=== PATIENT | female | born 1935 | race Caucasian/White ===

== ENCOUNTER → 2016-08-20 | Day surgery (SDC) | payer MEDICARE, BC ==
[~2016-08-20] MED LIST: Acetaminophen TAB* 325 MG PO PRN; Buffered Lidocaine 1% SYR 3ML* 3 ML/SYR SYRINGE INTRADERM ONE; Buffered Lidocaine 1% SYR 3ML* 3 ML/SYR SYRINGE ONE; Cyclopentolate 1% OPTH.SOL* 2 ML BTL ONE; Flurbiprofen 0.03% OPTH.SOL* 2.5 ML BTL ONE; Lidocaine 1% MPF* 2 ML VIAL ONE; Lidocaine 2% EPI 1:200000 MPF* 20 ML VIAL ONE; Midazolam* 1 MG/ML 2 ML VIAL (2 MG) ONE; Neomycin/Polymy/Dex OPTH.SUSP* MAXITROL 0.1% 5 ML ONE; Phenylephrine 2.5% OPTH.SOL* 2 ML BTL ONE; Povidone Iodine 5% OPTH* 30 ML BTL ONE; Proparacaine 0.5% OPHTH.SOL* 15 ML BTL ONE; acetaZOLAMIDE TAB* 250 MG ONE
--- NOTE | 2016-08-20 10:55 | OP ---
DATE OF OPERATION: 08/20/2016. DATE OF : 1935. SURGEON: Luis Manuel Box M.D. PREOPERATIVE DIAGNOSIS: Cataract right eye. POSTOPERATIVE DIAGNOSIS: Cataract right eye. OPERATIVE PROCEDURE: Phacoemulsification right eye with IOL. PROCEDURE: The patient was brought to the operating room after being given 1/2% Alcaine with epinep hrine drops in the preoperative area. The eye was prepped and draped in the usual sterile fashion. Sterile drape and eyelid speculum were placed. Again, topical 1/2% Alcaine with epinephrine was gi kendrick. A paracentesis incision was made at the 9 o'clock position with the No.75 blade. Clear cornea incision 2.2 x 2.2-mm was created at the 12 o'clock position starting at the anterior limbus using the 2.2-mm keratome. The anterior chamber was irrigated with 0.4 mL of 1% non-preservative intracam eral lidocaine and filled with DisCoVisc. A capsulorrhexis was completed using the cystotome and th e Utrata forceps. Hydrodissection was performed with balanced salt solution. The lens nucleus was r emoved with the Phacoemulsification handpiece without incident. Cortex was removed with the irrigat ion-aspiration handpiece. The capsular bag was re-inflated using DisCoVisc and an SN60WF 22.5 impla nt was inserted with the shooter. The irrigation-aspiration handpiece was used to remove all residu al DisCoVisc. The eye was refilled with balanced salt solution and the wound checked and found to b e watertight. Topical Maxitrol drops were given. [id number]/[facility] #: [id number]
[2016-08-20 11:39] VITALS: BP 115/76
== END | disposition home or self-care (01) ==
LOC: OREAST 07:41
PROVIDERS: ATTEND Specialist
DX: H25.811 Combined forms of age-related cataract, right eye (principal); H18.51 Endothelial corneal dystrophy; H35.373 Puckering of macula, bilateral
CPT/HCPCS: A9270-GY; J2250; V2632

== ENCOUNTER → 2016-08-27 | Day surgery (SDC) | payer MEDICARE, BC ==
--- NOTE | 2016-08-27 11:09 | OP ---
DATE OF OPERATION: 08/27/2016. DATE OF : 1935. SURGEON: Luis Manuel Box M.D. PREOPERATIVE DIAGNOSIS: Cataract left eye. POSTOPERATIVE DIAGNOSIS: Cataract left eye. OPERATIVE PROCEDURE: Phacoemulsification left eye with IOL. PROCEDURE: The patient was brought to the operating room after being given 1/2% Alcaine with epinep hrine drops in the preoperative area. The eye was prepped and draped in the usual sterile fashion. Sterile drape and eyelid speculum were placed. Again, topical 1/2% Alcaine with epinephrine was gi kendrick. A paracentesis incision was made at the 3 o'clock position with the No.75 blade. Clear cornea incision 2.2 x 2.2-mm was created at the 6 o'clock position starting at the anterior limbus using t he 2.2-mm keratome. The anterior chamber was irrigated with 0.4 mL of 1% non-preservative intracame ral lidocaine and filled with DisCoVisc. A capsulorrhexis was completed using the cystotome and the Utrata forceps. Hydrodissection was performed with balanced salt solution. The lens nucleus was re moved with the Phacoemulsification handpiece without incident. Cortex was removed with the irrigati on-aspiration handpiece. The capsular bag was re-inflated using DisCoVisc and an SN60WF 22.5 implan t was inserted with the shooter. The irrigation-aspiration handpiece was used to remove all residua l DisCoVisc. The eye was refilled with balanced salt solution and the wound checked and found to be watertight. Topical Maxitrol drops were given. [id number]/[facility] #: [id number]
[2016-08-27 11:12] VITALS: BP 124/73
== END | disposition home or self-care (01) ==
LOC: OREAST 07:51
PROVIDERS: ATTEND Specialist
DX: H25.812 Combined forms of age-related cataract, left eye (principal); H18.51 Endothelial corneal dystrophy; H35.373 Puckering of macula, bilateral; G30.1 Alzheimer's disease with late onset; E78.2 Mixed hyperlipidemia
CPT/HCPCS: A9270-GY; J2250; V2632

== ENCOUNTER 2017-08-20 18:49 | Observation (INO) | payer MEDICARE, OTHER ==
[2017-08-20 22:01] LABS: ABS Basophils 0 10^3/ul (0-0.2); ABS Eosinophils 0.1 10^3/ul (0-0.6); ABS Lymphocytes 1.7 10^3/ul (1.0-4.8); ABS Monocytes 1.2 10^3/ul (0-0.8); ABS Neutrophils 6.9 10^3/ul (1.5-7.7); ABS Nucleated RBC 0 10^3/ul; Hematocrit 38 % (35-47); Hemoglobin 12.8 g/dl (12.0-16.0); Lymphocyte % 17.3 % (25-47); Mean Corpuscular HGB Conc 34 g/dl (31-36); Mean Corpuscular Hemoglobin 31 pg (27-31); Mean Corpuscular Volume 92 fL (80-97); Mean Platelet Volume 8 um3 (7.4-10.4); Nucleated Red Blood Cells % 0; Platelet Count 311 10^3/ul (150-450); Red Blood Count 4.16 10^6/ul (4.0-5.4); Red Cell Distribution Width 14 % (10.5-15)
[2017-08-20 22:11] LABS: EGFR Non-African American 58.4 (>60)
--- NOTE | 2017-08-20 22:11 | RAD ---
Indication: Right ankle injury. 3 views of the right ankle demonstrate soft tissue swelling. Ankle mortise is intact. No other bone or joint abnormality is noted. IMPRESSION: Soft tissue swelling without fracture.
--- NOTE | 2017-08-20 22:12 | RAD ---
Indication: Right foot pain. 3 views of the right foot are reviewed. Osteopenia is noted. No fracture is identified. IMPRESSION: Osteopenia without evidence of fracture.
--- NOTE | 2017-08-20 22:46 | ED ---
Jeff Gardner Nikita, scribelmira for Abigail Meng MD on 08/20/17 at 2104 . Lower Extremity - HPI Summary HPI Summary: This patient is an 81 year old F presenting to [facility] accompanied by her children with a chief complaint of right-sided LE pain since 1700 today. The patient rates the pain 8/10 in severity. Symptoms aggravated by ambulating. Symptoms alleviated by nothing. Patient reports inability to ambulate due to pain and swelling of the right foot and of the right thigh. - History of Current Complaint Chief Complaint: EDExtremityLower Stated Complaint: RT LEG/FOOT PAIN Time Seen by Provider: 08/20/17 20:42 Hx Obtained From: Family/Research Professional - Daughters Hx From Patient Unobtainable Due To: Dementia Onset/Duration: Still Present Severity Currently: Moderate Pain Intensity: 8 Pain Scale Used: 0-10 Numeric Timing: Lasting Hours Location: Is Discrete @ - right foot, right thigh Associated Signs And Symptoms: Positive: Swelling - of the right foot and right thigh Aggravating Factor(s): Ambulation Alleviating Factor(s): Nothing - Allergies/Home Medications Allergies/Adverse Reactions: Allergies Allergy/AdvReac Type Severity Reaction Status Date / Time Statins Allergy Unknown Unknown Verified 08/20/17 20:47 Reaction Details PMH/Surg Hx/FS Hx/Imm Hx GI History: Reports: Hx Gastroesophageal Reflux Disease - MILD UNDIAGNOSED, Hx Hiatal Hernia - MILD History: Reports: Other Problems/Disorders - HAD UTI- RESOLVED Musculoskeletal History: Reports: Hx Arthritis - HIPS, OSTEOARTHRITIS Sensory History: Reports: Hx Cataracts - pending surgery, Hx Contacts or Glasses , Hx Glaucoma Denies: Hx Hearing Aid Opthamlomology History: Reports: Hx Cataracts - pending surgery, Hx Contacts or Glasses, Hx Glaucoma Neurological History: Reports: Hx Dementia, Other Neuro Impairments/Disorders - ALZHEIMERS Psychiatric History: Reports: Hx Depression - Surgical History Surgery Procedure, Year, and Place: hysterectomy Hx Anesthesia Reactions: No - Immunization History Date of Tetanus Vaccine: unk Date of Influenza Vaccine: unk Infectious Disease History: No Infectious Disease History: Denies: Traveled Outside the [place] in Last 30 Days - Family History Known Family History: Positive: None Family History: no cardiovascular issues in family lineage - Social History Alcohol Use: None Substance Use Type: Reports: None Smoking Status (MU): Never Smoked Tobacco Have You Smoked in the Last Year: No Review of Systems Negative: Fever Positive: Other - Patient reports inability to ambulate due to pain and swelling of the right foot and of the thigh. All Other Systems Reviewed And Are Negative: No Physical Exam - Summary Physical Exam Summary: VITAL SIGNS: Reviewed. GENERAL: Patient is a morbidly obese (female) who is lying comfortable in the stretcher. Patient is not in any acute respiratory distress. HEAD AND FACE: No signs of trauma. No ecchymosis, hematomas or skull depressions. No sinus tenderness. EYES: PERRLA, EOMI x 2, No injected conjunctiva, no nystagmus. EARS: Hearing grossly intact. Ear canals and tympanic membranes are within normal limits. MOUTH: Oropharynx within normal limits. NECK: Supple, trachea is midline, no adenopathy, no JVD, no carotid bruit, no c- spine tenderness, neck with full ROM. CHEST: Symmetric, no tenderness at palpation LUNGS: Clear to auscultation bilaterally. No wheezing or crackles. CVS: Regular rate and rhythm, S1 and S2 present, no murmurs or gallops appreciated. ABDOMEN: Soft, non-tender. No signs of distention. No rebound no guarding, and no masses palpated. Bowel sounds are normal. EXTREMITIES: FROM in all major joints, no cyanosis or clubbing. Tenderness of the right foot and ankle. No redness or warmness. Bilateral trace LE edema.Pain with movement of right ankle. NEURO: Alert and oriented only to her name. Motor exam is grossly non-focal. SKIN: Dry and warm Triage Information Reviewed: Yes Vital Signs On Initial Exam: Initial Vitals Temp Pulse Resp BP Pulse Ox 96.6 F 110 18 111/65 98 08/20/17 18:56 08/20/17 18:56 08/20/17 18:56 08/20/17 18:56 08/20/17 18:56 Vital Signs Reviewed: Yes Completion Of Physical Exam Limited Due To: Level 5 - History was obtained by daughters. - [place] Coma Scale Coma Scale Total: 14 Diagnostics - Vital Signs Vital Signs Temp Pulse Resp BP Pulse Ox 08/20/17 18:56 96.6 F 110 18 111/65 98 - Laboratory Lab Results: Lab Results 08/20/17 08/20/17 08/20/17 Range/Units 20:50 20:50 20:50 WBC 10.0 (3.5-10.8) 10^3/ul RBC 4.16 (4.0-5.4) 10^6/ul Hgb 12.8 (12.0-16.0) g/dl Hct 38 (35-47) % MCV 92 (80-97) fL MCH 31 (27-31) pg MCHC 34 (31-36) g/dl RDW 14 (10.5-15) % Plt Count 311 (150-450) 10^3/ul MPV 8 (7.4-10.4) um3 Neut % (Auto) 69.2 (38-83) % Lymph % (Auto) 17.3 L (25-47) % [place] % (Auto) 12.2 H (1-9) % Eos % (Auto) 1.0 (0-6) % Baso % (Auto) 0.3 (0-2) % Absolute Neuts (auto) 6.9 (1.5-7.7) 10^3/ul Absolute Lymphs (auto) 1.7 (1.0-4.8) 10^3/ul Absolute Monos (auto) 1.2 H (0-0.8) 10^3/ul Absolute Eos (auto) 0.1 (0-0.6) 10^3/ul Absolute Basos (auto) 0 (0-0.2) 10^3/ul Absolute Nucleated RBC 0 10^3/ul Nucleated RBC % 0 Sodium 136 (133-145) mmol/L Potassium 4.2 (3.5-5.0) mmol/L Chloride 99 L (101-111) mmol/L Carbon Dioxide 33 H (22-32) mmol/L Anion Gap 4 (2-11) mmol/L BUN 24 (6-24) mg/dL Creatinine 0.92 (0.51-0.95) mg/dL Est GFR ( Amer) 75.2 (>60) Est GFR (Non-Af Amer) 58.4 (>60) BUN/Creatinine Ratio 26.1 H (8-20) Glucose 141 H (70-100) mg/dL Lactic Acid 1.3 (0.5-2.0) mmol/L Calcium 9.7 (8.6-10.3) mg/dL Magnesium 2.0 (1.9-2.7) mg/dL Total Bilirubin 0.30 (0.2-1.0) mg/dL AST 24 (13-39) U/L ALT 19 (7-52) U/L Alkaline Phosphatase 96 (34-104) U/L Total Protein 7.4 (6.4-8.9) g/dL Albumin 3.7 (3.2-5.2) g/dL Globulin 3.7 (2-4) g/dL Albumin/Globulin Ratio 1.0 (1-3) Result Diagrams: 08/20/17 20:50 08/20/17 20:50 Lab Statement: Any lab studies that have been ordered have been reviewed, and results considered in the medical decision making process. - Radiology Foot XR Radiology Interpretation Completed By: Radiologist - Osteopenia without evidence of fracture. ED physician has reviewed this radiology report. Ankle XR Radiology Interpretation Completed By: Radiologist - Soft tissue swelling without fracture. ED physician has reviewed this radiology report. Lower Extremity Course/Dx - Course Assessment/Plan: This patient is an 81 year old F presenting [facility] accompanied by her daughters. They stated that Pt suddenly was not able to bear weight on the RLE because of pain. Pt has advaced dementia and not able to give me much history. On exam she has tenderness over the right foot and ankle without other inflammatory signs. X rays are negative for FX. Pt will be admitted for further eval. - Diagnoses Differential Diagnosis/HQI/PQRI: Positive: Other - Difficulty ambulating, right ankle pain, right foot pain. Provider Diagnoses: difficulty ambulating, Right ankle pain, Right foot pain - Physician Notifications Discussed Care Of Patient With: Scottie Hagen Time Discussed With Above Provider: 22:18 Instructed by Provider To: Other - Consulted Dr. Hagen who accepts patient for admission. Discharge - Discharge Plan Condition: Stable Disposition: ADMITTED TO [facility] Referrals: Malorie Faulkner MD [Primary Care Provider] - The documentation as recorded by the Jeff kat Nikita accurately reflects the service I personally performed and the decisions made by me, Abigail Meng MD.
--- NOTE | 2017-08-20 23:37 | HP ---
H&P (Free Text) History and Physical: PCP: Kayleigh Villalpando MD Date/Time: 08/20/2017 2330 CC: intractable R foot pain HPI: Mrs Weston is an 81YO female resident of the [facility] HX Alzheimer's who is unable to contribute to this history given by her daughters who are present. She was up ambulating without difficulty last night per [place] staff. However, when her daughter visited around 1700 she was unable to weight bear on the R foot 2nd pain. She was assisted to the dining area, but required a wheelchair to return to her room. As such, her daughter brought her to the ED for evaluation. There has been no known fall or other injury. The daughters report increased BLE edema since moving to [place] in May 2017, but she is not on a sodium restricted diet. There has been no report of chest pain or SOB. PMedHx Alzheimer's, moderately advanced Ambulatory Orders Ascorbic Acid TAB* [Vitamin C TAB*] 500 mg PO BID 08/02/16 Multiple Vitamins W/ Minerals [Multivitamin Women] 1 tab PO DAILY 08/02/16 Bio-Active Cranberry 500mg 500 mg PO DAILY 08/18/16 Cholecalciferol [Vitamin D3 Ultra Strength] 5,000 unit PO DAILY 08/18/16 Donepezil TAB* [Aricept TAB*] 10 mg PO DAILY 08/18/16 Calcium Carbonate (Antacid) [Tums E-X 750] 750 mg PO Q8H PRN 08/20/17 Magnesium 500 mg PO BID 08/20/17 Melatonin 9 mg PO BEDTIME 08/20/17 Polyethylene Glycol-Propylene [Systane Ultra 0.4-0.3 %] 1 paula OPHTHALMIC BID Triamcinolone 0.1% CREAM (NF) [Kenalog 0.1% Cream (NF)] 1 applic TOPICAL BID guaiFENesin ER TAB [Mucinex*] 600 mg PO Q12H PRN 08/20/17 Allergies Statins Allergy (Unknown, Verified 08/20/17 20:47) Unknown Reaction Details according to the daughter PSurgHx tonsillectomy hysterectomy SocHx: no tobacco, alcohol, or recreational drug HX; resides at [facility]; DNR/I code status FamHx: reviewed & non-contributory to current presentation ROS: as above, otherwise reviewed and all were negative vitals: Vital Signs Temp 36.8 C 08/21/17 02:05 Pulse 72 08/21/17 02:05 Resp 16 08/21/17 03:12 BP 154/78 08/21/17 02:05 Pulse Ox 96 08/21/17 02:05 Intake & Output 08/20/17 08/20/17 08/21/17 11:59 23:59 11:59 Weight 92.986 kg 90.083 kg Constitutional: NAD, normally developed, obese elderly white female HEENM: atraumatic; sclera/conjunctiva: anicteric/clear; hearing: clinically intact; oropharynx: clear, mucosa moist Neck: soft tissue: non-tender; thyroid: normal Pulmonary: clear to auscultation bilaterally, good aeration, no accessory muscle use CV: RR/RR, normal S1S2, no carotid bruit, no jugular venous distention, 2+ B DP/ PT, no pitting edema Abdominal: soft, non-distended, non-tender, no rebound/guarding/rigidity, normoactive bowel sounds, no hepatosplenomegaly or masses, no costovertebral angle tenderness Musculoskeletal: general: negative calf tenderness, negative Everardo's, no palpable cords, tenderness over B greater trochanters; B hips: full painless passive ROM; B knees: full painless passive ROM; gait: currently non-ambulatory Integumental: normal appearance and texture of BLE Psychiatric orientation: AA&O to person only affect: anxious mood: cooperative eye contact: poor content: for me only answers, "I don't know." when asked how she feels or if she hurts memory: markedly impaired responses: timely insight: poor to absent Testing: Lab Results 08/20/17 08/20/17 08/20/17 Range/Units 20:50 20:50 20:50 WBC 10.0 (3.5-10.8) 10^3/ul RBC 4.16 (4.0-5.4) 10^6/ul Hgb 12.8 (12.0-16.0) g/dl Hct 38 (35-47) % MCV 92 (80-97) fL MCH 31 (27-31) pg MCHC 34 (31-36) g/dl RDW 14 (10.5-15) % Plt Count 311 (150-450) 10^3/ul MPV 8 (7.4-10.4) um3 Neut % (Auto) 69.2 (38-83) % Lymph % (Auto) 17.3 L (25-47) % [place] % (Auto) 12.2 H (1-9) % Eos % (Auto) 1.0 (0-6) % Baso % (Auto) 0.3 (0-2) % Absolute Neuts (auto) 6.9 (1.5-7.7) 10^3/ul Absolute Lymphs (auto) 1.7 (1.0-4.8) 10^3/ul Absolute Monos (auto) 1.2 H (0-0.8) 10^3/ul Absolute Eos (auto) 0.1 (0-0.6) 10^3/ul Absolute Basos (auto) 0 (0-0.2) 10^3/ul Absolute Nucleated RBC 0 10^3/ul Nucleated RBC % 0 INR (Anticoag Therapy) (0.77-1.02) APTT (26.0-36.3) seconds Sodium 136 (133-145) mmol/L Potassium 4.2 (3.5-5.0) mmol/L Chloride 99 L (101-111) mmol/L Carbon Dioxide 33 H (22-32) mmol/L Anion Gap 4 (2-11) mmol/L BUN 24 (6-24) mg/dL Creatinine 0.92 (0.51-0.95) mg/dL Est GFR ( Amer) 75.2 (>60) Est GFR (Non-Af Amer) 58.4 (>60) BUN/Creatinine Ratio 26.1 H (8-20) Glucose 141 H (70-100) mg/dL Lactic Acid 1.3 (0.5-2.0) mmol/L Calcium 9.7 (8.6-10.3) mg/dL Magnesium 2.0 (1.9-2.7) mg/dL Total Bilirubin 0.30 (0.2-1.0) mg/dL AST 24 (13-39) U/L ALT 19 (7-52) U/L Alkaline Phosphatase 96 (34-104) U/L Total Protein 7.4 (6.4-8.9) g/dL Albumin 3.7 (3.2-5.2) g/dL Globulin 3.7 (2-4) g/dL Albumin/Globulin Ratio 1.0 (1-3) Urine Color Urine Appearance Urine pH (5-9) Ur Specific [place] (1.010-1.030) Urine Protein (Negative) Urine Ketones (Negative) Urine Blood (Negative) Urine Nitrate (Negative) Urine Bilirubin (Negative) Urine Urobilinogen (Negative) Ur Leukocyte Esterase (Negative) Urine Glucose (Negative) Urine Ascorbic Acid (Negative) 08/20/17 08/21/17 08/21/17 Range/Units 23:13 01:22 01:22 WBC (3.5-10.8) 10^3/ul RBC (4.0-5.4) 10^6/ul Hgb (12.0-16.0) g/dl Hct (35-47) % MCV (80-97) fL MCH (27-31) pg MCHC (31-36) g/dl RDW (10.5-15) % Plt Count (150-450) 10^3/ul MPV (7.4-10.4) um3 Neut % (Auto) (38-83) % Lymph % (Auto) (25-47) % [place] % (Auto) (1-9) % Eos % (Auto) (0-6) % Baso % (Auto) (0-2) % Absolute Neuts (auto) (1.5-7.7) 10^3/ul Absolute Lymphs (auto) (1.0-4.8) 10^3/ul Absolute Monos (auto) (0-0.8) 10^3/ul Absolute Eos (auto) (0-0.6) 10^3/ul Absolute Basos (auto) (0-0.2) 10^3/ul Absolute Nucleated RBC 10^3/ul Nucleated RBC % INR (Anticoag Therapy) 0.90 (0.77-1.02) APTT 31.2 (26.0-36.3) seconds Sodium (133-145) mmol/L Potassium (3.5-5.0) mmol/L Chloride (101-111) mmol/L Carbon Dioxide (22-32) mmol/L Anion Gap (2-11) mmol/L BUN 24 (6-24) mg/dL Creatinine 0.84 (0.51-0.95) mg/dL Est GFR ( Amer) 83.5 (>60) Est GFR (Non-Af Amer) 64.9 (>60) BUN/Creatinine Ratio (8-20) Glucose (70-100) mg/dL Lactic Acid (0.5-2.0) mmol/L Calcium (8.6-10.3) mg/dL Magnesium (1.9-2.7) mg/dL Total Bilirubin (0.2-1.0) mg/dL AST (13-39) U/L ALT (7-52) U/L Alkaline Phosphatase (34-104) U/L Total Protein (6.4-8.9) g/dL Albumin (3.2-5.2) g/dL Globulin (2-4) g/dL Albumin/Globulin Ratio (1-3) Urine Color Yellow Urine Appearance Clear Urine pH 6.0 (5-9) Ur Specific [place] 1.021 (1.010-1.030) Urine Protein Negative (Negative) Urine Ketones Negative (Negative) Urine Blood Negative (Negative) Urine Nitrate Negative (Negative) Urine Bilirubin Negative (Negative) Urine Urobilinogen Negative (Negative) Ur Leukocyte Esterase Negative (Negative) Urine Glucose Negative (Negative) Urine Ascorbic Acid * H (Negative) 18 Range/Units 01:22 WBC 8.3 (3.5-10.8) 10^3/ul RBC 4.05 (4.0-5.4) 10^6/ul Hgb 12.3 (12.0-16.0) g/dl Hct 37 (35-47) % MCV 92 (80-97) fL MCH 30 (27-31) pg MCHC 33 (31-36) g/dl RDW 14 (10.5-15) % Plt Count 297 (150-450) 10^3/ul MPV 8 (7.4-10.4) um3 Neut % (Auto) 63.4 (38-83) % Lymph % (Auto) 22.3 L (25-47) % [place] % (Auto) 11.7 H (1-9) % Eos % (Auto) 1.5 (0-6) % Baso % (Auto) 1.1 (0-2) % Absolute Neuts (auto) 5.3 (1.5-7.7) 10^3/ul Absolute Lymphs (auto) 1.9 (1.0-4.8) 10^3/ul Absolute Monos (auto) 1.0 H (0-0.8) 10^3/ul Absolute Eos (auto) 0.1 (0-0.6) 10^3/ul Absolute Basos (auto) 0.1 (0-0.2) 10^3/ul Absolute Nucleated RBC 0 10^3/ul Nucleated RBC % 0.1 INR (Anticoag Therapy) (0.77-1.02) APTT (26.0-36.3) seconds Sodium (133-145) mmol/L Potassium (3.5-5.0) mmol/L Chloride (101-111) mmol/L Carbon Dioxide (22-32) mmol/L Anion Gap (2-11) mmol/L BUN (6-24) mg/dL Creatinine (0.51-0.95) mg/dL Est GFR ( Amer) (>60) Est GFR (Non-Af Amer) (>60) BUN/Creatinine Ratio (8-20) Glucose (70-100) mg/dL Lactic Acid (0.5-2.0) mmol/L Calcium (8.6-10.3) mg/dL Magnesium (1.9-2.7) mg/dL Total Bilirubin (0.2-1.0) mg/dL AST (13-39) U/L ALT (7-52) U/L Alkaline Phosphatase (34-104) U/L Total Protein (6.4-8.9) g/dL Albumin (3.2-5.2) g/dL Globulin (2-4) g/dL Albumin/Globulin Ratio (1-3) Urine Color Urine Appearance Urine pH (5-9) Ur Specific [place] (1.010-1.030) Urine Protein (Negative) Urine Ketones (Negative) Urine Blood (Negative) Urine Nitrate (Negative) Urine Bilirubin (Negative) Urine Urobilinogen (Negative) Ur Leukocyte Esterase (Negative) Urine Glucose (Negative) Urine Ascorbic Acid (Negative) XRY R foot, personally reviewed: IMPRESSION: Osteopenia without evidence of fracture. XRY R ankle, personally reviewed: IMPRESSION: Soft tissue swelling without fracture. Impression: 81F HX advanced Alzheimer's unreliable for current status information presents with intractable R foot/ankle pain DIAGNOSIS & PLAN Primary intractable R foot/ankle pain : pain control : PT evaluation : supportive care Secondary Alzheimer's, advanced : continue donepezil Admission Rational: observation for pain control DVTp: heparin SQ Code Status: DNR/I HCP: cass
[2017-08-20 23:39] LABS: Urine Appearance Clear; Urine Blood Negative (Negative); Urine Color Yellow; Urine Ketones Negative (Negative); Urine Protein Negative (Negative); Urine Specific Gravity 1.021 (1.010-1.030); Urine Urobilinogen Negative (Negative)
[2017-08-21] MEDS ORDERED: Acetaminophen TAB* 325 MG PO PRN (00:42)
[2017-08-21] MEDS ORDERED: CMCS: Melatonin (NF) 3 MG TAB PO PRN (00:42)
[2017-08-21] MEDS ORDERED: Ondansetron INJ* 2 MG/ML VIAL IV PRN (00:42)
[2017-08-21] MEDS ORDERED: oxyCODONE TAB* 5 MG TAB PO PRN (00:42)
[2017-08-21] MEDS ORDERED: traMADol TAB* 50 MG PO PRN (00:42)
[2017-08-21 01:41] LABS: ABS Basophils 0.1 10^3/ul (0-0.2); ABS Eosinophils 0.1 10^3/ul (0-0.6); ABS Lymphocytes 1.9 10^3/ul (1.0-4.8); ABS Neutrophils 5.3 10^3/ul (1.5-7.7); ABS Nucleated RBC 0 10^3/ul; Eosinophil % 1.5 % (0-6); Hematocrit 37 % (35-47); Hemoglobin 12.3 g/dl (12.0-16.0); Lymphocyte % 22.3 % (25-47); Mean Corpuscular HGB Conc 33 g/dl (31-36); Mean Corpuscular Hemoglobin 30 pg (27-31); Mean Corpuscular Volume 92 fL (80-97); Mean Platelet Volume 8 um3 (7.4-10.4); Nucleated Red Blood Cells % 0.1; Platelet Count 297 10^3/ul (150-450); Red Blood Count 4.05 10^6/ul (4.0-5.4); Red Cell Distribution Width 14 % (10.5-15); White Blood Count 8.3 10^3/ul (3.5-10.8)
[2017-08-21 01:53] LABS: EGFR Non-African American 64.9 (>60)
[2017-08-21 01:55] LABS: INR 0.9 (0.77-1.02)
[2017-08-21] MEDS ORDERED: Omeprazole CAP* 20 MG PO SCH (06:00)
[2017-08-21] MEDS: Docusate CAP* 100 MG PO SCH ×2 (08:31→08:39)
[2017-08-21 10:10] VITALS: BP 140/64
--- NOTE | 2017-08-21 12:26 | PN ---
Subjective Date of Service: 08/21/17 Interval History: Ms. Weston has advanced dementia and is unable to offer any information or identify any complaint. Her family report that she has had a chronic problem with right hip pain that she used to manage with acupuncture, physical therapy, and chiropractic treatments. As her dementia is severe, she has not been able to utilize these modalities recently. There is no known injury but she seemed to have the acute onset of inability to ambulate with apparent pain to the right leg yesterday. No other symptoms have been reported by family. Objective Active Medications: Acetaminophen (Tylenol Tab*) 650 mg PO Q6H PRN Docusate Sodium (Colace Cap*) 200 mg PO BID LADONNA Heparin Sodium (Porcine) (Heparin Vial(*)) 5,000 units SUBCUT Q8HR LADONNA Melatonin (Melatonin (Nf)) 3 mg PO BEDTIME PRN; Protocol Omeprazole (Prilosec Cap*) 20 mg PO DAILY@0600 LADONNA Ondansetron HCl (Zofran Inj*) 4 mg IV Q6H PRN Oxycodone HCl (Roxycodone Tab*) 2.5 mg PO Q4H PRN Tramadol HCl (Ultram*) 50 mg PO Q6H PRN Vital Signs: Temp Pulse Resp BP Pulse Ox 97.2 F 70 16 140/64 96 08/21/17 07:38 08/21/17 07:38 08/21/17 10:08 08/21/17 07:38 08/21/17 07:38 Oxygen Devices in Use Now: None Appearance: Elderly female lying in bed in NAD Eyes: No Scleral Icterus Ears/Nose/Mouth/Throat: Mucous Membranes Moist Neck: Trachea Midline Respiratory: Symmetrical Chest Expansion and Respiratory Effort, Clear to Auscultation Cardiovascular: NL Sounds; No Murmurs; No JVD, No Edema Abdominal: NL Sounds; No Tenderness; No Distention Lymphatic: No Cervical Adenopathy Extremities: No Edema Skin: No Rash or Ulcers Neurological: - - Alert, demented, says a few words but is not able to answer questions Nutrition: Taking PO's Result Diagrams: 08/21/17 01:22 08/21/17 01:22 Additional Lab and Data: Vital Signs: Temp Pulse Resp BP Pulse Ox 97.2 F 70 16 140/64 96 08/21/17 07:38 08/21/17 07:38 08/21/17 10:08 08/21/17 07:38 08/21/17 07:38 Microbiology and Other Data: . Assess/Plan/Problems-Billing Assessment: Ms. Weston is an 81 yo female with a PMH of advanced dementia who was admitted on 08/20/17 with right foot/ankle or hip pain with limp and impaired mobility. - Patient Problems (1) Right foot pain Comment: - No evidence of foot or ankle injury. - Unclear that it is actually foot pain given dementia, will check hip xray as patient has pronounced limp per PT. - Per PT, patient able to ambulate with walker and contact guard assist. - Continue tramadol and acetaminophen, family do not think she can tolerate NSAIDs due to GI upset. (2) Dementia Comment: - Supportive care. (3) DVT prophylaxis Comment: - Heparin SQ. (4) DNR (do not resuscitate) Comment: Status and Disposition: OBV. Patient from [place]. system manager to discuss mobility issues with [facility] to see if she is appropriate to return there.
--- NOTE | 2017-08-21 13:59 | RAD ---
Indication: Right hip pain. 2 views of the right hip are reviewed. AP view of the pelvis is also reviewed. No fracture or dislocation is noted. Hip joint is well-preserved. Pelvic ring is intact. IMPRESSION: Unremarkable right hip or pelvis.
--- NOTE | 2017-08-22 04:32 | DS ---
CC: Dr. Faulkner * [facility] MEDICINE DISCHARGE SUMMARY: DATE OF ADMISSION: 08/20/17 DATE OF DISCHARGE: 08/21/17 PRIMARY CARE PHYSICIAN: Dr. Faulkner. ATTENDING PHYSICIAN: Dr. Eder Rodriguez * (dictation provided by Genesis Sharma NP). PRIMARY DIAGNOSES: 1. Difficulty with ambulation. 2. Question of right leg pain. SECONDARY DIAGNOSIS: Alzheimer's. MEDICATIONS AT THE TIME OF DISCHARGE: 1. Tylenol 650 mg p.o. q.6 hours p.r.n. pain. 2. Tramadol 50 mg p.o. q.6 hours p.r.n. pain. 3. Ascorbic acid 500 mg p.o. b.i.d. 4. Multivitamin with mineral 1 tab p.o. daily. 5. Cranberry 500 mg p.o. daily. 6. Cholecalciferol 5000 units p.o. daily. 7. Donepezil 10 mg p.o. daily. 8. Calcium carbonate 750 mg p.o. q.8 hours p.r.n. indigestion. 9. Magnesium 500 mg p.o. b.i.d. 10. Melatonin 9 mg p.o. at bedtime. 11. Polyethylene glycol propylene (Systane Ultra) 0.4/0.3% ophthalmically b.i.d. 12. Triamcinolone 0.1% cream topically b.i.d. 13. Guaifenesin ER 600 mg p.o. q.12 hours p.r.n. HOSPITAL COURSE: Ms. Weston is an 81-year-old female with a past medical history of dementia, who is a resident of [place], who presented to the hospital on 08/20/17 with concern for inability to ambulate. Please see the dictated H and P from Dr. Scottie Hagen for complete details. In brief, Ms. Weston has advanced dementia and is unable to offer any meaningful information. The patient's daughters reported that she was having increasing difficulty on the day of admission with ambulation and seemed to be having difficulty bearing weight on her right foot. Due to the patient's dementia, she was unable to clearly state whether or not she had foot, ankle, knee, or hip pain, but was limping on the right leg. In the emergency room, she had an ankle x-ray, which showed "soft tissue swelling without fracture." She also had a foot x-ray, which showed "osteopenia without evidence of fracture." Ms. Weston was placed on observation in the hospital due to her inability to ambulate. Today, she was seen by Physical Therapy, who note that she is able to walk slowly with a walker and contact guard assist. She continues to have limping gait. Hip/pelvis x-ray was obtained today that showed "unremarkable hip or pelvis." In discussing the case with the patient's daughter, they note that the patient has had intermittent longstanding history of right hip and sometimes right knee pain. Prior to her advanced dementia, she would manage this discomfort with alternative treatments like acupuncture and chiropractic therapy. She has not been able to use these modalities with the same frequency since her dementia is advanced and she has been a patient at [facility]. I suspected that perhaps her issue today is consistent with this chronic history of right leg discomfort. No acute injury has been found. The patient herself is not able to clarify that she actually even has any pain or where that location would be. She is able to ambulate. Ms. Watts is medically stable and she has been accepted back to [facility] with 24-hour care provided by family and/or her hired support as well as use of a walker, which will be delivered today. DISPOSITION: To [facility]. DIET: Regular. ACTIVITY: As tolerated with physical therapy. FOLLOWUP PLANS: Please follow up with Dr. Faulkner as needed regarding this acute hospitalization. TIME SPENT: Approximately 60 minutes were spent on the discharge of this patient, more than half time spent with her and her family at the bedside reviewing the events leading up to and during this hospitalization, performing the physical examination, and reviewing my plan of care. GENESIS SHARMA, SHANELL [id number]/[facility] #: [id number] WINIFRED
[2017-08-22] MEDS ORDERED: Heparin VIAL(*) 5000 UNITS/ML VIAL (FIVE THOUSAND) SUBCUT SCH (06:00)
== END 2017-08-21 16:55 ==
LOC: ED 18:49 → MED 23:32
PROVIDERS: ADMIT Hospitalist; ATTEND Internal Medicine
DX: R26.2 Difficulty in walking, not elsewhere classified (principal); M79.604 Pain in right leg; M79.671 Pain in right foot; M25.571 Pain in right ankle and joints of right foot; G30.9 Alzheimer's disease, unspecified; F02.80 Dementia in other diseases classified elsewhere, unspecified severity, without behavioral disturbance, psychotic disturbance, mood disturbance, and anxiety; Z79.899 Other long term (current) drug therapy; Z88.8 Allergy status to other drugs, medicaments and biological substances
CPT/HCPCS: 36415; 80053; 81003; 82565; 83605; 83735; 84520; 85025; 85610; 85730; 87641; 99284; A9270-GY; G0378; G8978-GP-CK; G8979-GP-CI

== ENCOUNTER 2018-05-20 11:06 | Emergency (ER) | payer MEDICARE, BC ==
--- NOTE | 2018-05-20 13:18 | RAD ---
HISTORY: pain,swelling,no h/o trauma COMPARISONS: November 30, 2017 VIEWS: 5 , Frontal, lateral, axial, and oblique views of the right knee FINDINGS: BONE DENSITY: There is diffuse osteopenia. BONES: There is no displaced fracture. JOINTS: There is mild osteoporosis. There is no suprapatellar joint effusion or lipohemarthrosis. ALIGNMENT: There is no dislocation. SOFT TISSUES: Unremarkable. OTHER FINDINGS: None. IMPRESSION: 1. OSTEOPENIA. 2. MILD OSTEOARTHRITIS. 3. NO ACUTE OSSEOUS INJURY. IF SYMPTOMS PERSIST, RECOMMEND REPEAT IMAGING.
[2018-05-20 13:45] LABS: Hematocrit 41 % (35-47); Hemoglobin 13.6 g/dl (12.0-16.0); Mean Corpuscular HGB Conc 33 g/dl (31-36); Mean Corpuscular Hemoglobin 31 pg (27-31); Mean Corpuscular Volume 94 fL (80-97); Red Cell Distribution Width 15 % (10.5-15); White Blood Count 9.4 10^3/ul (3.5-10.8)
[2018-05-20 13:52] LABS: EGFR Non-African American 60.6 (>60)
[2018-05-20] MEDS ORDERED: Acetaminophen TAB* 325 MG PO ONE (13:54)
--- NOTE | 2018-05-20 14:00 | ED ---
Lower Extremity - HPI Summary HPI Summary: This patient is an 82 year old F presenting to [facility] accompanied by her daughter with a chief complaint of R knee pain and swelling since 05/19/18. Pt s daughter noticed a slight limp yesterday while visiting in the [facility]. Today, she got a call informing her that the pt was unable to ambulate (but is able to stand), the knee was more edematous than baseline (PMHx chronic R knee edema), and was warm to the touch. Her daughter denies known trauma, and denies knee PMHx OA. PMHx Alzheimers. Level 5 caveat: Full HPI unobtainable due to pt dementia. - History of Current Complaint Chief Complaint: EDExtremityLower Stated Complaint: RIGHT KNEE LOWER LEG PASS Time Seen by Provider: 05/20/18 13:02 Hx Obtained From: Family/Math Interventionist Hx From Patient Unobtainable Due To: Dementia Mechanism Of Injury: Unknown Onset of Pain: Prior to Arrival Onset/Duration: Days - This AM Severity Initially: Mild Severity Currently: Moderate Pain Intensity: 5 Pain Scale Used: 0-10 Numeric Timing: Constant Location: Is Discrete @ - R knee Associated Signs And Symptoms: Positive: Swelling, Knee Pain. Negative: Fever Aggravating Factor(s): Ambulation Alleviating Factor(s): Nothing Able to Bear Weight: Yes - Allergies/Home Medications Allergies/Adverse Reactions: Allergies Allergy/AdvReac Type Severity Reaction Status Date / Time Eeqqjlg-Lfe-Uiu Reductase Allergy Unknown Verified 05/20/18 13:08 Inhibitor Reaction Details Home Medications: Home Medications Ascorbic Acid TAB* [Vitamin C TAB*] 500 mg PO BID 05/20/18 [History Confirmed 05/20/18] Calcium Carbonate [Tums Extra Strength 750] 750 mg PO Q8HR PRN 05/20/18 [ History Confirmed 05/20/18] Cholecalciferol CAP/TAB(NF) [Vitamin D3 CAP/TAB (NF)] 5,000 unit PO MOWEFR 05/20 [History Confirmed 05/20/18] Cranberry Fruit Extract [Cranberry] 500 mg PO QAM 05/20/18 [History Confirmed ] Dextran 70/Hypromellose/Pf [Genteal Tears Moderate 0.1-0.3 %] 1 drop BOTH EYES QID PRN 05/20/18 [History Confirmed 05/20/18] Diclofenac 1% GEL (NF) [Voltaren 1% GEL (NF)] 1 applic TOPICAL .BID MOTUWETHFR 05/20/18 [History Confirmed 05/20/18] Magnesium Oxide [Magnesium] 500 mg PO BID 05/20/18 [History Confirmed 05/20/18] Melatonin (NF) 9 mg PO BEDTIME 05/20/18 [History Confirmed 05/20/18] Multivitamins/Minerals TAB* [Theragran/minerals TAB*] 1 tab PO DAILY 05/20/18 [ History Confirmed 05/20/18] Senna TAB* [Senokot TAB*] 1 tab PO DAILY 05/20/18 [History Confirmed 05/20/18] Sertraline* [Zoloft*] 50 mg PO DAILY 05/20/18 [History Confirmed 05/20/18] Sertraline* [Zoloft*] 50 mg PO DAILY PRN 05/20/18 [History Confirmed 05/20/18] PMH/Surg Hx/FS Hx/Imm Hx Endocrine/Hematology History: Denies: Hx Sickle Cell Disease GI History: Reports: Hx Gastroesophageal Reflux Disease - MILD UNDIAGNOSED, Hx Hiatal Hernia - MILD History: Reports: Other Problems/Disorders - HAD UTI- RESOLVED Musculoskeletal History: Reports: Hx Arthritis - HIPS, OSTEOARTHRITIS Sensory History: Reports: Hx Cataracts - pending surgery, Hx Contacts or Glasses , Hx Glaucoma Denies: Hx Hearing Aid Opthamlomology History: Reports: Hx Cataracts - pending surgery, Hx Contacts or Glasses, Hx Glaucoma Neurological History: Reports: Hx Dementia, Other Neuro Impairments/Disorders - ALZHEIMERS Psychiatric History: Reports: Hx Depression - Surgical History Surgery Procedure, Year, and Place: hysterectomy Hx Anesthesia Reactions: No - Immunization History Date of Tetanus Vaccine: unk Date of Influenza Vaccine: unk Infectious Disease History: No Infectious Disease History: Denies: Traveled Outside the [place] in Last 30 Days - Family History Known Family History: Negative: Cardiac Disease, Hypertension Family History: no cardiovascular issues in family lineage - Social History Occupation: Retired Lives: At [facility] Alcohol Use: None Substance Use Type: Reports: None Smoking Status (MU): Never Smoked Tobacco Have You Smoked in the Last Year: No Review of Systems - ROS Summary Review of Systems Summary: Level 5 caveat: Full ROS unobtainable due to pt dementia. Negative: Fever Positive: Arthralgia - R knee, Decreased ROM - R knee, Edema - R knee, Other - R knee warm to touch Positive: Other - R knee warm to touch All Other Systems Reviewed And Are Negative: No Physical Exam - Summary Physical Exam Summary: Appearance: Well-appearing, Well-nourished, lying in bed comfortable Skin: Warm, dry, no obvious rash Eyes: sclera anicteric, no conjunctival pallor ENT: mucous membranes moist Neck: deferred Respiratory: No signs of respiratory distress Cardiovascular: Appears well perfused, pulses are nml Abdomen: deferred Musculoskeletal: Swelling of right knee with minimal warmth, no erythema, possible small effusion Neurological: Awake and alert, mild confusion consistent with Alzheimers disease Psychiatric: affect is normal, does not appear anxious or depressed Triage Information Reviewed: Yes Vital Signs On Initial Exam: Initial Vitals Temp Pulse Resp BP Pulse Ox 98.7 F 72 16 114/66 98 05/20/18 11:14 05/20/18 11:14 05/20/18 11:14 05/20/18 11:14 05/20/18 11:14 Vital Signs Reviewed: Yes Completion Of Physical Exam Limited Due To: Dementia, Level 5 Diagnostics - Vital Signs Vital Signs Temp Pulse Resp BP Pulse Ox 05/20/18 11:14 98.7 F 72 16 114/66 98 - Laboratory Lab Results: Lab Results 05/20/18 05/20/18 Range/Units 13:14 13:14 WBC 9.4 (3.5-10.8) 10^3/ul RBC 4.40 (4.00-5.40) 10^6/ul Hgb 13.6 (12.0-16.0) g/dl Hct 41 (35-47) % MCV 94 (80-97) fL MCH 31 (27-31) pg MCHC 33 (31-36) g/dl RDW 15 (10.5-15) % Plt Count Pending MPV Pending Neut % (Auto) Pending Lymph % (Auto) Pending Sharkey % (Auto) Pending Eos % (Auto) Pending Baso % (Auto) Pending Absolute Neuts (auto) Pending Absolute Lymphs (auto) Pending Absolute Monos (auto) Pending Absolute Eos (auto) Pending Absolute Basos (auto) Pending Absolute Nucleated RBC Pending Nucleated RBC % Pending ESR Pending Sodium 138 (135-145) mmol/L Potassium 4.3 (3.5-5.0) mmol/L Chloride 103 (101-111) mmol/L Carbon Dioxide 30 (22-32) mmol/L Anion Gap 5 (2-11) mmol/L BUN 24 (6-24) mg/dL Creatinine 0.89 (0.51-0.95) mg/dL Est GFR ( Amer) 73.3 (>60) Est GFR (Non-Af Amer) 60.6 (>60) BUN/Creatinine Ratio 27.0 H (8-20) Glucose 95 (70-100) mg/dL Calcium 9.2 (8.6-10.3) mg/dL C-Reactive Protein 33.35 H (<8.01) mg/L Result Diagrams: 05/20/18 13:14 05/20/18 13:14 Lab Statement: Any lab studies that have been ordered have been reviewed, and results considered in the medical decision making process. - Radiology RLE Xray Interpretation: Positive (See Comments) Radiology Interpretation Completed By: Radiologist - 1. OSTEOPENIA. 2. MILD OSTEOARTHRITIS. 3. NO ACUTE OSSEOUS INJURY. Dr. Vivas has reviewed this report. - Ultrasound No standard instances Ultrasound Interpretation: No Acute Changes Ultrasound Interpretation Completed By: Radiologist - RLE VD: No evidence for deep vein thrombosis. Dr. Vivas has reviewed this report. Re-Evaluation - Re-Evaluation First Eval Re-Evaluation Time: 16:07 Comment: The patient was observed to be walking with a limp. She can walk with assistance. Her daughter thinks she can get around to limited extent with her walker. Clearly the problem is a acute flare of arthritis in her right knee. I will recommend regular dose Tylenol and follow-up with orthopedist for consideration of a joint injection. Given her body habitus and a fairly small effusion, I'm not confident of my ability to successfully enter the joint. Lower Extremity Course/Dx - Course Course Of Treatment: An 82-year-old F presents to the ED with a CC of R knee pain and edema for 1 day. (+) warm to touch, limp, able to bear weight, unable to ambulate, more edematous than baseline. PMHx R knee edema, Alzheimer's. Daughter states she noticed a slight limp yesterday, and today pt was unable to ambulate, only bear weight, and knee was warm to touch and more swollen than baseline. A R knee XR reveals 1. OSTEOPENIA. 2. MILD OSTEOARTHRITIS. 3. NO ACUTE OSSEOUS INJURY. A RLE VD was (-). In the ED course, pt was given tylenol. Pt labs show high BUN/creat ratio, high CRP, low lymph %, high mono %, high abs mono, high ESR. - Diagnoses Provider Diagnoses: Osteoarthritis of right knee - Physician Notifications Discussed Care Of Patient With: Malorie Faulkner Time Discussed With Above Provider: 14:37 Instructed by Provider To: Other - Informed her about pt in ED, discussed differential dx and upcoming imaging. Discharge - Sign-Out/Discharge Documenting (check all that apply): Patient Departure - discharge - Discharge Plan Condition: Stable Disposition: HOME Patient Education Materials: Osteoarthritis (ED) Referrals: Malorie Faulkner MD [Primary Care Provider] - Melida Herr MD [Medical Doctor] - Additional Instructions: Take 2 extra strength tylenol 3 times daily for the pain. Call the orthopedic surgeon listed to arrange an appt. If the knee does not calm down with tylenol and time, they may be able to help with a joint injection. - Attestation Statements Document Initiated by Scribe: Yes Documenting Scribe: Danny Huerta Provider For Whom Lenoibe is Documenting (Include Credential): Dr. Nicanor Vivas MD Scribe Attestation: Danny Gardner, scribed for Dr. Nicanor Vivas MD on 05/20/18 at 1609.
[2018-05-20 14:17] LABS: ABS Basophils 0.1 10^3/ul (0-0.2); ABS Eosinophils 0.2 10^3/ul (0-0.6); ABS Lymphocytes 1.6 10^3/ul (1.0-4.8); ABS Monocytes 1.1 10^3/ul (0-0.8); ABS Neutrophils 6.4 10^3/ul (1.5-7.7); ABS Nucleated RBC 0 10^3/ul; Eosinophil % 1.8 % (0-6); Lymphocyte % 17.1 % (25-47); Mean Platelet Volume 9.5 um3 (7.4-10.4); Nucleated Red Blood Cells % 0; Platelet Count 224 10^3/ul (150-450)
--- NOTE | 2018-05-20 15:36 | RAD ---
INDICATION: Right leg swelling COMPARISON: There are no relevant prior studies available for comparison. TECHNIQUE: Multiple real-time, color flow and Doppler tracings of the right lower extremity were obtained. FINDINGS: The common femoral, femoral, profunda femoral and popliteal veins all demonstrate normal compressibility, augmentation with compression and phasic response with respiration. The posterior tibial and peroneal veins demonstrate normal compressibility and augmentation with compression. IMPRESSION: NO EVIDENCE FOR DEEP VENOUS THROMBOSIS.
[2018-05-20 16:19] VITALS: BP 124/61
== END 2018-05-20 16:18 | disposition home or self-care (01) ==
LOC: ED 11:06
DX: M17.11 Unilateral primary osteoarthritis, right knee (principal); M79.89 Other specified soft tissue disorders; K21.9 Gastro-esophageal reflux disease without esophagitis; G30.9 Alzheimer's disease, unspecified; F02.80 Dementia in other diseases classified elsewhere, unspecified severity, without behavioral disturbance, psychotic disturbance, mood disturbance, and anxiety
CPT/HCPCS: 36415; 80048; 85025; 85652; 86140; 99283; A9270-GY

== ENCOUNTER 2020-10-15 22:56 | Inpatient (IN) ==
[2020-10-15 23:46] LABS: ABS Eosinophils 0.2 10^3/ul (0-0.6); ABS Lymphocytes 1.1 10^3/ul (1.0-4.8); ABS Monocytes 0.8 10^3/ul (0-0.8); ABS Neutrophils 7.7 10^3/ul (1.5-7.7); Eosinophil % 1.6 %; Hematocrit 39 % (35-47); Lymphocyte % 11.2 %; Mean Corpuscular HGB Conc 34 g/dL (31-36); Mean Corpuscular Hemoglobin 32 pg (27-31); Mean Corpuscular Volume 95 fL (80-97); Mean Platelet Volume 9.6 fL (7.4-10.4); Platelet Count 189 10^3/uL (150-450); Red Cell Distribution Width 15 % (10-15); White Blood Count 9.8 10^3/uL (3.5-10.8)
[2020-10-15 23:58] LABS: ALT 12 U/L (7-52); Albumin 3.4 g/dL (3.2-5.2); Alkaline Phosphatase 85 U/L (34-104); BUN/Creatinine Ratio 31.1 (8-20); Blood Urea Nitrogen 33 mg/dL (6-24); CO2 Carbon Dioxide 27 mmol/L (22-32); Chloride 109 mmol/L (101-111); EGFR African American 59.6 (>60); EGFR Non-African American 49.3 (>60); Globulin 3.3 g/dL (2-4); Glucose 145 mg/dL (70-100); Sodium 143 mmol/L (135-145); Total Protein 6.7 g/dL (6.4-8.9)
[2020-10-16 00:01] LABS: Troponin I 0.12 ng/mL (<0.03)
[2020-10-16 00:02] LABS: Anion Gap 7 mmol/L (2-11)
[2020-10-16] MEDS ORDERED: Lactated Ringers 1000 ml BAG 1,000 ML IV ONE (00:07)
[2020-10-16 00:13] LABS: TSH Ultra Thyroid Stim Horm 4.26 mcIU/mL (0.34-5.60)
[2020-10-16 02:19] LABS: Cholesterol 278 mg/dL; HDL Cholesterol 54.5 mg/dL
[2020-10-16] MEDS ORDERED: NS 0.9% 500 ml BAG 500 ML IV ONE (02:23)
[2020-10-16] MEDS ORDERED: Dextran 70/Hypromellose Tears Eye Drops 15 ml BTL (for Artificials Tears) BOTH EYES PRN (02:39)
[2020-10-16 02:43] LABS: C Reactive Protein 65.92 mg/L (<8.01); LDL Cholesterol 200 mg/dL; Triglycerides 116 mg/dL
[2020-10-16] MEDS ORDERED: Calcium Carb (TUMS) 500 mg CHEW TAB PO PRN (02:57)
[2020-10-16] MEDS ORDERED: Iodixanol (CONTRAST) 320 MG/ML 100 ML SDV IV ONE (03:10)
[2020-10-16] MEDS ORDERED: Enoxaparin 40 MG/0.4 ML SYR SUBCUT SCH (04:00)
[2020-10-16 06:42] LABS: Urine Appearance Cloudy; Urine Bilirubin Negative (Negative); Urine Blood 1+ (Negative); Urine Color Amber; Urine Glucose Negative (Negative); Urine Ketones Negative (Negative); Urine Nitrite Negative (Negative); Urine Protein 1+(30 mg/dL) (Negative); Urine Specific Gravity 1.055 (1.010-1.030); Urine Urobilinogen Negative (Negative)
[2020-10-16 06:57] LABS: INR 1.1 (0.82-1.09)
[2020-10-16 07:02] LABS: ALT 13 U/L (7-52); Albumin 3.2 g/dL (3.2-5.2); Alkaline Phosphatase 74 U/L (34-104); BUN/Creatinine Ratio 33.3 (8-20); Blood Urea Nitrogen 30 mg/dL (6-24); CO2 Carbon Dioxide 27 mmol/L (22-32); Calcium 8.6 mg/dL (8.6-10.3); Chloride 108 mmol/L (101-111); EGFR Non-African American 59.5 (>60); Globulin 3.2 g/dL (2-4); Glucose 116 mg/dL (70-100); Sodium 141 mmol/L (135-145); Total Protein 6.4 g/dL (6.4-8.9)
[2020-10-16 07:04] LABS: Urine White Blood Cell Trace(0-5/hpf) (Absent)
[2020-10-16 07:05] LABS: Urine Bacteria Absent (Absent); Urine Red Blood Cell 1+(3-5/hpf) (Absent); Urine Squamous Epithelial Cell Present (Absent)
[2020-10-16 07:14] LABS: Anion Gap 6 mmol/L (2-11); Troponin I 0.34 ng/mL (<0.03)
[2020-10-16] MEDS ORDERED: Alteplase (100 mg Vial) 100 MG in Premix IV 100 ML IV ONE (07:15)
[2020-10-16 07:57] LABS: Magnesium 2.1 mg/dL (1.9-2.7); Potassium Redraw 4.4 mmol/L (3.5-5.0)
[2020-10-16] MEDS ORDERED: Lactated Ringers 1000 ml BAG 1,000 ML IV SCH (08:00)
[2020-10-16] MEDS: TURMERIC 1500 MG PO SCH ×2 (09:40→23:21)
[2020-10-16] MEDS: Multivitamins/Minerals TAB PO SCH (09:40)
[2020-10-16] MEDS: CRANBERRY EXTRACT 500 MG PO SCH (09:40)
[2020-10-16] MEDS ORDERED: Heparin DRIP 25,000 UNITS BAG 25,000 UNITS/500 ML BAG IV SCH ×2 (11:00)
[2020-10-16] MEDS ORDERED: Heparin 5000 UNITS/ML 1 mL VIAL IV SCH ×2 (11:00→17:00)
[2020-10-16] MEDS ORDERED: Albuterol/Ipratropium NEB.SOL (2.5/0.5 MG) 3 ML NEB.SOLN ONE (11:28)
[2020-10-16 13:22] LABS: ABS Eosinophils 0.2 10^3/ul (0-0.6); ABS Lymphocytes 1.6 10^3/ul (1.0-4.8); ABS Neutrophils 8.5 10^3/ul (1.5-7.7); Hematocrit 35 % (35-47); Hemoglobin 11.3 g/dL (12.0-16.0); Lymphocyte % 13.9 %; Mean Corpuscular HGB Conc 33 g/dL (31-36); Mean Corpuscular Hemoglobin 31 pg (27-31); Mean Corpuscular Volume 95 fL (80-97); Mean Platelet Volume 9.1 fL (7.4-10.4); Platelet Count 160 10^3/uL (150-450); Red Blood Count 3.64 10^6 /uL (3.70-4.87); Red Cell Distribution Width 15 % (10-15); White Blood Count 11.4 10^3/uL (3.5-10.8)
[2020-10-16 13:41] LABS: Potassium 4.5 mmol/L (3.5-5.0)
[2020-10-16 13:47] LABS: Troponin I 0.53 ng/mL (<0.03)
[2020-10-16] MEDS ORDERED: Albuterol/Ipratropium NEB.SOL (2.5/0.5 MG) 3 ML NEB.SOLN INH PRN (17:44)
[2020-10-16 18:48] LABS: Troponin I 0.35 ng/mL (<0.03)
[2020-10-16 18:49] LABS: Hematocrit 33 % (35-47); Hemoglobin 11.1 g/dL (12.0-16.0); Mean Corpuscular HGB Conc 33 g/dL (31-36); Mean Corpuscular Hemoglobin 32 pg (27-31); Mean Corpuscular Volume 95 fL (80-97); Mean Platelet Volume 8.9 fL (7.4-10.4); Platelet Count 68 10^3/uL (150-450); Red Blood Count 3.51 10^6 /uL (3.70-4.87); Red Cell Distribution Width 15 % (10-15); White Blood Count 7.2 10^3/uL (3.5-10.8)
[2020-10-16] MEDS ORDERED: Famotidine IV 10 MG/ML 2 ml VIAL (20 mg) IV SLOW PU SCH (21:00)
[2020-10-16] MEDS: Pantoprazole VIAL 40 MG VIAL IV SCH (21:14)
[2020-10-16 22:01] LABS: ABS Basophils 0.1 10^3/ul (0-0.2); ABS Eosinophils 0.1 10^3/ul (0-0.6); ABS Lymphocytes 1.3 10^3/ul (1.0-4.8); ABS Monocytes 0.5 10^3/ul (0-0.8); ABS Neutrophils 4.3 10^3/ul (1.5-7.7); Eosinophil % 2.1 %; Hematocrit 32 % (35-47); Hemoglobin 10.6 g/dL (12.0-16.0); Lymphocyte % 20.9 %; Mean Corpuscular HGB Conc 34 g/dL (31-36); Mean Corpuscular Hemoglobin 31 pg (27-31); Mean Corpuscular Volume 94 fL (80-97); Mean Platelet Volume 9.1 fL (7.4-10.4); Nucleated Red Blood Cells % 0.4; Platelet Count 81 10^3/uL (150-450); Red Blood Count 3.39 10^6 /uL (3.70-4.87); Red Cell Distribution Width 14 % (10-15); White Blood Count 6.3 10^3/uL (3.5-10.8)
[2020-10-17 04:35] LABS: ABS Basophils 0.1 10^3/ul (0-0.2); ABS Eosinophils 0.2 10^3/ul (0-0.6); ABS Lymphocytes 1.4 10^3/ul (1.0-4.8); ABS Monocytes 0.8 10^3/ul (0-0.8); ABS Neutrophils 6.7 10^3/ul (1.5-7.7); Eosinophil % 2.7 %; Hematocrit 31 % (35-47); Hemoglobin 10.2 g/dL (12.0-16.0); Lymphocyte % 14.9 %; Mean Corpuscular HGB Conc 33 g/dL (31-36); Mean Corpuscular Hemoglobin 31 pg (27-31); Mean Corpuscular Volume 94 fL (80-97); Mean Platelet Volume 8.5 fL (7.4-10.4); Platelet Count 159 10^3/uL (150-450); Red Blood Count 3.24 10^6 /uL (3.70-4.87); Red Cell Distribution Width 15 % (10-15); White Blood Count 9.1 10^3/uL (3.5-10.8)
[2020-10-17 04:50] LABS: BUN/Creatinine Ratio 28.4 (8-20); Calcium 8.3 mg/dL (8.6-10.3); EGFR African American 90.3 (>60); EGFR Non-African American 74.6 (>60)
[2020-10-17] MEDS: CRANBERRY EXTRACT 500 MG PO SCH (09:55)
[2020-10-17] MEDS: Multivitamins/Minerals TAB PO SCH ×2 (10:25→10:49)
[2020-10-17] MEDS: Cholecalciferol (VIT D3) 1,000 unit TAB FEED TUBE SCH ×2 (10:47→10:48)
[2020-10-17] MEDS: Pantoprazole VIAL 40 MG VIAL IV SCH ×2 (10:50→20:04)
[2020-10-17] MEDS ORDERED: cefTRIAXone 1 gm/50 mL NS BAG 1 GM/50 ML BAG IVPB SCH (15:33)
[2020-10-17] MEDS: cefTRIAXone 1 gm/50 mL NS BAG 1 GM/50 ML BAG IVPB SCH (16:14)
[2020-10-18 05:23] LABS: ABS Eosinophils 0.3 10^3/ul (0-0.6); ABS Lymphocytes 1.3 10^3/ul (1.0-4.8); ABS Monocytes 0.7 10^3/ul (0-0.8); ABS Neutrophils 5.1 10^3/ul (1.5-7.7); Eosinophil % 3.6 %; Hematocrit 30 % (35-47); Hemoglobin 9.8 g/dL (12.0-16.0); Lymphocyte % 17.3 %; Mean Corpuscular HGB Conc 33 g/dL (31-36); Mean Corpuscular Hemoglobin 31 pg (27-31); Mean Corpuscular Volume 95 fL (80-97); Mean Platelet Volume 8.7 fL (7.4-10.4); Platelet Count 156 10^3/uL (150-450); Red Blood Count 3.15 10^6 /uL (3.70-4.87); Red Cell Distribution Width 14 % (10-15); White Blood Count 7.4 10^3/uL (3.5-10.8)
[2020-10-18 05:40] LABS: Albumin 2.9 g/dL (3.2-5.2); Albumin/Globulin Ratio 1.2 (1-3); BUN/Creatinine Ratio 22.7 (8-20); Calcium 8.1 mg/dL (8.6-10.3); EGFR Non-African American 85.1 (>60); Globulin 2.4 g/dL (2-4); Potassium 3.6 mmol/L (3.5-5.0); Total Bilirubin 0.5 mg/dL (0.2-1.0); Total Protein 5.3 g/dL (6.4-8.9)
[2020-10-18 05:52] LABS: Activated Partial Thrombo Time 22.4 seconds (26.0-38.0); INR 1.16 (0.82-1.09)
[2020-10-18] MEDS: KCL 10 MEQ/50 ML IVPREMIX 10 MEQ/50 ML BAG IV SCH ×2 (08:35→13:06)
[2020-10-18] MEDS: Pantoprazole VIAL 40 MG VIAL IV SCH (08:35)
[2020-10-18] MEDS: Multivitamins/Minerals TAB PO SCH (08:35)
[2020-10-18] MEDS: CRANBERRY EXTRACT 500 MG PO SCH (09:52)
[2020-10-18] MEDS ORDERED: Ketamine HCL 50 mg/ml 10 ml VIAL (500 MG) ONE (10:03)
[2020-10-18] MEDS ORDERED: Midazolam 2 mg/2 ml VIAL 1 mg/ml 2 ml VIAL (2 mg) ONE (10:03)
[2020-10-18] MEDS ORDERED: fentaNYL 100 mcg/2 ml 50 MCG/ML VIAL ONE (10:03)
[2020-10-18] MEDS ORDERED: Heparin 2 UNITS/ML 1000 mls 1,000 ML IV ONE (10:30)
[2020-10-18] MEDS ORDERED: Lidocaine 2% PF 5 ML VIAL ONE (12:49)
[2020-10-18] MEDS ORDERED: Propofol 10 MG/ML 20 ML BTL ONE (12:49)
[2020-10-18] MEDS ORDERED: KCL 10 MEQ/50 ML IVPREMIX 10 MEQ/50 ML BAG ONE (13:05)
[2020-10-18] MEDS: cefTRIAXone 1 gm/50 mL NS BAG 1 GM/50 ML BAG IVPB SCH (16:42)
[2020-10-19 08:11] LABS: ABS Eosinophils 0.3 10^3/ul (0-0.6); ABS Lymphocytes 1.2 10^3/ul (1.0-4.8); ABS Monocytes 0.7 10^3/ul (0-0.8); ABS Neutrophils 5.2 10^3/ul (1.5-7.7); Hematocrit 32 % (35-47); Hemoglobin 10.8 g/dL (12.0-16.0); Lymphocyte % 15.7 %; Mean Corpuscular HGB Conc 34 g/dL (31-36); Mean Corpuscular Hemoglobin 32 pg (27-31); Mean Corpuscular Volume 95 fL (80-97); Mean Platelet Volume 9.2 fL (7.4-10.4); Platelet Count 180 10^3/uL (150-450); Red Cell Distribution Width 14 % (10-15); White Blood Count 7.4 10^3/uL (3.5-10.8)
[2020-10-19] MEDS: Multivitamins/Minerals TAB PO SCH (08:30)
[2020-10-19] MEDS: CRANBERRY EXTRACT 500 MG PO SCH (08:31)
[2020-10-19 08:32] LABS: BUN/Creatinine Ratio 17.1 (8-20); Calcium 8.7 mg/dL (8.6-10.3); EGFR African American 96.2 (>60); EGFR Non-African American 79.5 (>60)
[2020-10-19] MEDS: Cholecalciferol (VIT D3) 1,000 unit TAB FEED TUBE SCH (08:37)
[2020-10-19] MEDS ORDERED: Pantoprazole VIAL 40 MG VIAL IV SCH (09:00)
[2020-10-19] MEDS: cefTRIAXone 1 gm/50 mL NS BAG 1 GM/50 ML BAG IVPB SCH (16:26)
[2020-10-20 05:20] LABS: ABS Eosinophils 0.3 10^3/ul (0-0.6); ABS Monocytes 0.7 10^3/ul (0-0.8); ABS Neutrophils 5.8 10^3/ul (1.5-7.7); Eosinophil % 3.8 %; Hematocrit 32 % (35-47); Hemoglobin 10.7 g/dL (12.0-16.0); Lymphocyte % 12.9 %; Mean Corpuscular HGB Conc 34 g/dL (31-36); Mean Corpuscular Hemoglobin 32 pg (27-31); Mean Corpuscular Volume 94 fL (80-97); Mean Platelet Volume 8.2 fL (7.4-10.4); Platelet Count 207 10^3/uL (150-450); Red Blood Count 3.39 10^6 /uL (3.70-4.87); Red Cell Distribution Width 14 % (10-15); White Blood Count 7.9 10^3/uL (3.5-10.8)
[2020-10-20] MEDS: CRANBERRY EXTRACT 500 MG PO SCH (08:29)
[2020-10-20] MEDS: Multivitamins/Minerals TAB PO SCH (08:43)
[2020-10-20] MEDS: cefTRIAXone 1 gm/50 mL NS BAG 1 GM/50 ML BAG IVPB SCH (16:29)
[2020-10-21 04:52] LABS: ABS Basophils 0.1 10^3/ul (0-0.2); ABS Eosinophils 0.2 10^3/ul (0-0.6); ABS Lymphocytes 1.3 10^3/ul (1.0-4.8); ABS Monocytes 0.7 10^3/ul (0-0.8); ABS Neutrophils 4.4 10^3/ul (1.5-7.7); Eosinophil % 3.6 %; Hematocrit 31 % (35-47); Hemoglobin 10.4 g/dL (12.0-16.0); Mean Corpuscular HGB Conc 33 g/dL (31-36); Mean Corpuscular Hemoglobin 32 pg (27-31); Mean Corpuscular Volume 95 fL (80-97); Mean Platelet Volume 7.8 fL (7.4-10.4); Platelet Count 219 10^3/uL (150-450); Red Cell Distribution Width 14 % (10-15); White Blood Count 6.6 10^3/uL (3.5-10.8)
[2020-10-21] MEDS: CRANBERRY EXTRACT 500 MG PO SCH (08:39)
[2020-10-21] MEDS: Multivitamins/Minerals TAB PO SCH (08:46)
[2020-10-22] MEDS: CRANBERRY EXTRACT 500 MG PO SCH (07:54)
[2020-10-22] MEDS: Multivitamins/Minerals TAB PO SCH (07:54)
[2020-10-22] MEDS: Cholecalciferol (VIT D3) 1,000 unit TAB FEED TUBE SCH (07:55)
[2020-10-23] MEDS: CRANBERRY EXTRACT 500 MG PO SCH (07:51)
[2020-10-23] MEDS: Multivitamins/Minerals TAB PO SCH (07:58)
[2020-10-24] MEDS: Multivitamins/Minerals TAB PO SCH (08:39)
[2020-10-24] MEDS: Cholecalciferol (VIT D3) 1,000 unit TAB FEED TUBE SCH (09:30)
[2020-10-24 11:48] VITALS: BP 114/58
== END 2020-10-24 13:40 | DRG 175 ==
LOC: ED 22:56 → MEDTELE 10-16 01:32 → ICU 10-16 05:03 → MEDTELE 10-18 20:17
PROVIDERS: ADMIT Internal Medicine; ATTEND Student in an Organized Health Care Education/Training Program